=== PATIENT | male | born 1980 | race Caucasian/White ===

== ENCOUNTER 2016-05-08 19:21 | Emergency (ER) | payer MEDICAID | END 2016-05-08 23:10 | disposition home or self-care (01) | LOC: D.ER 19:21 | DX: M70.31 Other bursitis of elbow, right elbow (principal); Y93.89 Activity, other specified; F17.200 Nicotine dependence, unspecified, uncomplicated; C71.9 Malignant neoplasm of brain, unspecified; C62.90 Malignant neoplasm of unspecified testis, unspecified whether descended or undescended ==

== ENCOUNTER 2016-05-29 15:04 | Emergency (ER) | payer MEDICAID | END 2016-05-29 17:05 | disposition home or self-care (01) | LOC: D.ER 15:04 | DX: M70.31 Other bursitis of elbow, right elbow (principal); Y93.89 Activity, other specified; C71.9 Malignant neoplasm of brain, unspecified; C62.90 Malignant neoplasm of unspecified testis, unspecified whether descended or undescended; F17.200 Nicotine dependence, unspecified, uncomplicated ==

== ENCOUNTER → 2016-06-09 12:55 | Outpatient (CLI) | payer MEDICAID | END | disposition home or self-care (01) | LOC: D.RAD 12:55 | DX: C62.11 Malignant neoplasm of descended right testis (principal) ==